=== PATIENT | male | born 1990 | race Two or more races ===

== ENCOUNTER 2018-03-13 12:26 | Day surgery (SDC) | payer OTHER ==
[~2018-03-13] VITALS: Ht 185.4 cm; Wt 199.6 kg
[2018-03-13] VITALS (9 sets, daily range): BP systolic 122–146; BP diastolic 61–83
--- NOTE | 2018-03-13 07:45 | Pre-Procedure Note/Attestation ---
Pre-Procedure Note/Attestation Complete Prior to Procedure Planned Procedure: right Procedure Narrative: shoulder arthroscopy, sad Indications for Procedure Pre-Operative Diagnosis: right shoulder interal derangement Attestation I attest that I discussed the nature of the procedure; its benefits; risks and complications; and alternatives (and the risks and benefits of such alternatives ), prior to the procedure, with the patient (or the patient's legal client account representative). I attest that, if there was a reasonable possibility of needing a blood transfusion, the patient (or the patient's legal client account representative) was given the [facility] standardized written summary, pursuant to the [place] Blood Safety Act ([place] Health and Safety Code # 1645, as amended). I attest that I re-evaluated the patient just prior to the surgery and that there has been no change in the patient's H&P, except as documented below: Yonny Travis MD Mar 13, 2018 07:45
--- NOTE | 2018-03-13 07:45 | Operative Note - PDOC ---
Operative Note Operative Note Pre-op Diagnosis: right shoulder interal derangement Procedure: see op report Post-op Diagnosis: same as pre-op plus Operative Findings: consistent w/pre-op dx studies Anesthesia: general Specimen: none Complications: none Condition: stable Estimated Blood Loss: none Implant(s) used?: No Yonny Travis MD Mar 13, 2018 07:45
[~2018-03-13 12:26] MED LIST: BYSTOLIC5 MG ORAL; GLYXAMBI 25 MG1 EACH PO; ceFAZolin 1gm in D5W 55ml IVP ONE; celeBREX 200mg Cap **SURGERY PATIENTS ONLY ORAL ONE; oxyCONTIN 20mg tab ORAL ONE
[2018-03-13] MEDS ORDERED: NS Irrig 4000ml IRRIG ONE ×2 (13:30→14:43)
[2018-03-13] MEDS ORDERED: LR 1000ml ONE (13:30)
[2018-03-13] MEDS ORDERED: Bupivacaine w/Epi 0.25% 30ml Vial INJ ONE (13:30)
[2018-03-13] MEDS ORDERED: EPINEPHrine 1mg/1ml Amp ONE (13:30)
[2018-03-13] MEDS ORDERED: oxyCONTIN 20mg tab ORAL ONE (13:35)
[2018-03-13] MEDS ORDERED: celeBREX 200mg Cap **SURGERY PATIENTS ONLY ORAL ONE (13:35)
[2018-03-13] MEDS ORDERED: Propofol 200mg/20ml IV ONE (13:39)
[2018-03-13] MEDS ORDERED: Dexamethasone 4mg/ml vial ONE (13:39)
[2018-03-13] MEDS ORDERED: Lidocaine 1% MPF 10mg/ml 5ml ONE (13:39)
[2018-03-13] MEDS ORDERED: Ropivacaine 5mg/ml Vial 30ml INJ ONE (13:39)
--- NOTE | 2018-03-13 14:35 | Anethesia Preoperative Eval ---
Anesthesia Pre-op PMH/ROS General Date of Evaluation: Mar 13, 2018 Time of Evaluation: 13:36 Anesthesiologist: Kervin ASA Score: ASA 3 Mallampati Score Class I : Soft palate, uvula, fauces, pillars visible Class II: Soft palate, uvula, fauces visible Class III: Soft palate, base of uvula visible Class IV: Only hard plate visible Mallampati Classification: Class III Surgeon: Thaddeus Diagnosis: L Shoulder Pain Surgical Procedure: L Shoulder Arthroscopy Anesthesia History: none Family History: no anesthesia problems Allergies: Coded Allergies: No Known Allergies (Unverified , 03/12/18) Medications: see eMAR Past Medical History Cardiovascular: Reports: HTN Endocrine: Reports: DM Other: obesity - Morbid BMI 60 PSxH Narrative: Bilateral Knee SX Anesthesia Pre-op Phys. Exam Physician Exam Last Vital Signs Date Time Temp Pulse Resp B/P (MAP) Pulse Ox O2 Delivery O2 Flow Rate FiO2 03/13/18 13:15 99.0 81 18 122/68 (86) 96 99.0 03/13/18 13:09 Room Air Constitutional: NAD Neurologic: CN 2-12 intact Cardiovascular: RRR Respiratory: CTA Gastrointestinal: S/NT/ND Airway Exam Mallampati Score: Class III MO: full ROM: limited Teeth: intact Anesthesia Pre-op A/P Risk Assessment & Plan Assessment: ASA 3 Plan: GA, SED, GlideScope Go Status Change Before Surgery: No Pre-Antibiotics Dru Grams Ancef IV Given Within 1 Hr of Incision: Yes Time Given: 14:01 Payam Galeana MD Mar 13, 2018 14:35
[2018-03-13] MEDS ORDERED: fentaNYL 100 mcg/2 mL IV ONE (14:40)
--- NOTE | 2018-03-13 15:35 | Immediate Post-Op Evaluation ---
Immediate Post-Op Evalulation Immediate Post-Op Evalulation Procedure: L Shoulder Arthroscopy Date of Evaluation: Mar 13, 2018 Time of Evaluation: 15:47 IV Fluids: 600 LR Blood Products: 0 Estimated Blood Loss: 7 Urinary Output: 0 Blood Pressure Systolic: 142 Blood Pressure Diastolic: 69 Pulse Rate: 83 Respiratory Rate: 16 O2 Sat by Pulse Oximetry: 100 Temperature (Fahrenheit): 97.6 Pain Score (1-10): 1 Nausea: No Vomiting: No Complications 0 Patient Status: awake, reacts, patent, none Hydration Status: adequate Dru Grams Ancef IV Given Within 1 Hr of Incision: Yes Time Given: 14:01 Payam Galeana MD Mar 13, 2018 15:35
--- NOTE | 2018-03-13 15:36 | 48 Hour Post Anesthesia Eval ---
Post Anesthesia Evaluation Procedure: L Shoulder Arthroscopy Date of Evaluation: Mar 13, 2018 Time of Evaluation: 17:48 Blood Pressure Systolic: 141 0: 68 Pulse Rate: 83 Respiratory Rate: 18 Temperature (Fahrenheit): 97.8 O2 Sat by Pulse Oximetry: 100 Airway: patent Nausea: No Vomiting: No Pain Intensity: 1 Hydration Status: adequate Cardiopulmonary Status: Stable Mental Status/LOC: patient returned to baseline Follow-up Care/Observations: 0 Post-Anesthesia Complications: 0 Follow-up care needed: ready to discharge Payam Galeana MD Mar 13, 2018 15:36
[2018-03-13] MEDS ORDERED: D5 1/2NS 1,000 ML IV SCH (17:00)
[2018-03-13] MEDS ORDERED: Tylenol #3 tab (300mg/30mg) ORAL PRN (17:00)
[2018-03-13] MEDS ORDERED: HYDROmorphone 1mg/ml Carpuject SUBQ PRN (17:00)
[2018-03-13] MEDS ORDERED: Norco 5mg/325mg tab ORAL PRN (17:00)
--- NOTE | 2018-03-14 | Operative Note - Dictated ---
DATE OF OPERATION: 03/13/2018 PREOPERATIVE DIAGNOSES: 1. Right shoulder internal derangement secondary to posterior labral tear. 2. Right shoulder traumatic bursitis. 3. Partial articular-sided rotator cuff tear. POSTOPERATIVE DIAGNOSES: 1. Grade 3 chondral damage, posterior-inferior glenoid. 2. Traumatic posterior labral tear. 3. Subdeltoid bursitis. PROCEDURES: 1. Right shoulder diagnostic arthroscopy. 2. Extensive intraarticular debridement. 3. Decompression bursectomy, release of CA ligament. 4. Right shoulder partial articular rotator cuff debridement/repair. SURGEON: Yonny Travis M.D. FIXED ASSETS ACCOUNTANT: None. ANESTHESIOLOGIST: Payam Galeana M.D. ANESTHESIA: Interscalene with general. INDICATION FOR PROCEDURE: The patient is a pleasant gentleman, who has had continued right shoulder pain and had evidence of some chondral damage within glenoid along with possible posterior labral tear as well as some pain and discomfort. After failed conservative treatment, elected to undergo diagnostic arthroscopy, possible repair versus debridement of posterior labral tear with possible decompression and bursectomy. Risks, limitations, expectations, and complications of procedure were discussed in detail. All questions were addressed. DESCRIPTION OF PROCEDURE: After informed consent was obtained, the patient was brought to the operating room. The patient was placed under interscalene general anesthesia. The patient was then carefully placed in the beach-chair position. Right shoulder was prepped and draped in a sterile manner. Time-out was performed. Posterolateral stab incision was then made. Trocar was introduced into the glenohumeral joint. Systematic tour of the shoulder was performed. There was no significant chondral damage. The humeral head and the anterior labrum were grossly intact along with the subscapularis. Superior labrum was intact along with the biceps tendon. The undersurface of the supraspinatus had a partial tear. The infraspinatus was intact. Once the partial articular rotator cuff tear was debrided/repaired, attention towards a better assessment of the posterior line on the glenoid. The chondral damage in the inferior-posterior aspect of the glenoid was full thickness. The labrum inferiorly had some fraying, which was debrided. Once this was done, the anterior labrum as well as posterior labrum were probed. There was not any gross detachment that was felt needed to formal fixation with anchors. Once the rotator cuff, labrum, and cartilage were addressed, cast placement then was placed. A complete bursectomy and acromioplasty was completed from lateral to medial and completed from posterior to anterior. Once that was completed, instruments were removed. The portal sites were closed with 3-0 Monocryl sutures. Steri-Strips and sterile dressing were applied. The patient was awoken and taken to recovery room with stable vital signs. ESTIMATED BLOOD LOSS: None. COMPLICATIONS: None. Yonny Travis M.D. DR: JULISSA JOB#: [id number] CC: [email or web address]
== END 2018-03-13 16:35 | disposition home or self-care (01) ==
LOC: SUR 12:26
DX: M75.111 Incomplete rotator cuff tear or rupture of right shoulder, not specified as traumatic (principal); S43.491A Other sprain of right shoulder joint, initial encounter; E11.9 Type 2 diabetes mellitus without complications; I10 Essential (primary) hypertension; E66.01 Morbid (severe) obesity due to excess calories; Z68.44 Body mass index [BMI] 60.0-69.9, adult; R06.83 Snoring
CPT/HCPCS: 29826; 29827; 82962; J0171; J0690; J1100; J2250; J2405; J2704; J2795; J3010; 94003; 94150